=== PATIENT | male | born 1970 | race Caucasian/White ===

== ENCOUNTER 2018-10-06 07:37 | Day surgery (SDC) | payer OTHER ==
[~2018-10-06 07:37] MED LIST: FENTANYL 100MCG/2ML SOL ONE; MIDAZOLAM 2 MG/2 ML SOL ONE; ONDANSETRON HCL 4 MG/2 ML SOL ONE; PROPOFOL 10 MG/ML 200 MG/20 ML EMU IV ONE
[2018-10-06] MEDS ORDERED: BUPIVACAINE LIPOSOME 20 ML SUS ONE (08:17)
[2018-10-06] MEDS ORDERED: KETOROLAC TROMETHAMINE 30 MG/ML SOL ONE (09:34)
[2018-10-06 10:39] VITALS: RESP 16; TEMP 98.1
[2018-10-06 11:20] VITALS: BP 139/89; PULSE 87; O2SAT 93
== END 2018-10-06 11:50 | disposition home or self-care (01) | DRG 395 ==
LOC: SURG 07:37
PROVIDERS: ATTEND Surgery
DX: K64.4 Residual hemorrhoidal skin tags (principal); K64.8 Other hemorrhoids
CPT/HCPCS: 99001; J0330; J1885; J2250; J2405; J3010; J2704